=== PATIENT | female | born 1955 | race Caucasian/White ===

== ENCOUNTER 2018-11-27 08:18 | Observation (INO) | payer OTHER ==
[~2018-11-27] VITALS: Ht 165.1 cm; Wt 70.3 kg
--- NOTE | 2018-11-27 08:34 | NUR ---
PATIENT AMBULATED TO ROOM WITH STEADY GAIT AND PHYSICIAN AT BEDSIDE FOR EVAL
[2018-11-27 08:54] LABS: HEMATOCRIT 46.8 % (37.0-47.0); HEMOGLOBIN 15.4 g/dl (12.0-16.0); IMMATURE GRANULOCYTES 0.3 % (0.0-5.0); MEAN CELL VOLUME 94.5 fL CALC (80.0-100.0); MEAN CORPUSCULAR HGB 31.1 pG CALC (26.0-32.0); MEAN CORPUSCULAR HGB CONC 32.9 g/L CALC (32.0-36.0); NEUT# 4.66 thou/uL (2.00-7.15); RED BLOOD COUNT 4.95 mill/uL (4.20-5.60)
[2018-11-27 09:07] LABS: ANION GAP 14 (6-22 (CALC)); BUN 16 mg/dL (8-23); BUN/CREATININE RATIO 17 (12-20 (CALC)); CARBON DIOXIDE 26 mmol/l (22-30); CHLORIDE 106 mmol/l (95-108); CREATININE 0.9 mg/dL (0.5-1.0); GFR > 60 ML/MIN (>=60 (CALC)); GFR FOR AFR.AMER. > 60 ML/MIN (>=60 (CALC)); POTASSIUM 4.1 mmol/l (3.5-5.1); SODIUM 141 mmol/l (137-146)
[2018-11-27 09:09] LABS: PROTHROMBIN TIME 10.5 SECONDS (9.0-12.5)
--- NOTE | 2018-11-27 09:27 | NUR ---
PATIENT RESTING AWAITING RADIOLOGY RESULTS STATES PAIN 4 ON 0-10 SCALE
--- NOTE | 2018-11-27 10:24 | NUR ---
PATIENT RESTING AWAITING ROOM ASSIGNMNET
--- NOTE | 2018-11-27 10:33 | NUR ---
REPORT CALLED TO BAMBI IN MED SURG
--- NOTE | 2018-11-27 10:38 | NUR ---
PATIENT TRANSPORTED TO [facility]
[2018-11-27 10:39] VITALS: BP 126/52
--- NOTE | 2018-11-27 11:11 | NUR ---
PT HAD COME FROM ER VIA WHEELCHAIR BY [facility]. ASSESSMENT DONE. PT IS A&O X3. RIGHT ARM IN PLACE WITH A SLING. RIGHT ARM ELEVATED IN PILLOW. TELE IN PLACE. #22 LAC THAT APPEARS HEALTHY. RESPS EVEN AND UNLABORED. SAFETY PRECAUTIONS REINFORCED AND CALL LIGHT IN REACH.
[2018-11-27] MEDS ORDERED: AMIODARONE200 MG PO (11:43)
[2018-11-27] MEDS ORDERED: LEVOTHYROXIN25 MC1 PO (11:44)
[2018-11-27] MEDS ORDERED: PRILOSEC20 MG/CAP PO (11:45)
[2018-11-27] MEDS ORDERED: ELIQUIS5 MG PO (11:46)
--- NOTE | 2018-11-27 12:10 | NUR ---
MEDICATED PT WITH ULTRAM FOR PAIN IN RIGHT ARM 11/01 SEE EMAR. ICE PACK APPLIED TO RIGHT ARM. CALL LIGHT IN REACH.
--- NOTE | 2018-11-27 15:40 | NUR ---
MEDICATED PT WITH LORTAB FOR PAIN IN RIGHT ARM 12/01 SEE EMAR. RIGHT ARM ELEVATED IN PILLOW. ICE PACK APPLIED. PT DENIES ANY OTHER NEEDS AT THIS TIME. CALL LIGHT IN REACH.
[2018-11-27 17:22] VITALS: BP 119/69
[2018-11-27 19:00] VITALS: BP 126/58
--- NOTE | 2018-11-27 19:35 | NUR ---
REPORT RECEIVED FROM DAY NURSE. PT IS STANDING ON SIDE OF THE BED, HER IS SITTING ON THE BED AND PT IS RUBBING LOTION ONTO HUSBANDS BACK. PT HAS SLING TO RIGHT ARM AND REPORTS FEELING OKAY AT THIS TIME. POC DISCUSSED.
--- NOTE | 2018-11-27 20:15 | NUR ---
PT ASSESSED, LUNG SOUNDS ARE CLEAR, ABD SOFT NON-TENDER, PUPILS ARE EQUAL AND REACTIVE, NEURO'S INTACT, PT LOCX4, FINGERS TO RIGHT HAND ARE WARM, PINK AND ABLE TO MOVE. PT REPORTS NORMAL STOOL YESTEREDAY. SKIN IS INTACT AND PT DENIES ANY OTHER INJURIES FROM FALL. PT ENCOURAGED TO CALL IF ANY NEEDS ARISE. CALL LIGHT AT BEDSIDE.
--- NOTE | 2018-11-27 21:50 | NUR ---
PT MEDICATED FOR PAIN REPORTED 12/01. PT IS TALKATIVE AND TELLING ME HER PLANS FOR THE NEXT DAY AND ASKING ABOUT THE HOSPITAL LAYOUT. PT ASSISTED SETTING UP TABLE FOR THE NIGHT AND REPOSITIONING FOR COMFORT IN BED. AIDE IS IN ASSISTING PT ALSO. PT REPORTS 200CC OF CLEAR YELLOW URINE THAT SHE MEASURED AND EMPTIED HERSELF. NEURO'S APPEAR TO BE INTACT. LOCX4. WILL CONTINUE TO MONITOR. CALL LIGHT AT SIDE AND PT REMINDED OF ITS USE AND ENCOURAGED TO CALL FOR ASSISTANCE.
[2018-11-28 00:07] VITALS: BP 113/64
--- NOTE | 2018-11-28 01:20 | NUR ---
PT SLEEPING, AWOKE TO MY ENTERING ROOM. NEURO'S INTACT, PT LOC. ICE PACK REPOSITIONED AND RIGHT ARM ELEVATED ON PILLOWS. DENIES ANY OTHER NEEDS AT THIS TIME. CALL LIGHT AT SIDE.
[2018-11-28 04:25] VITALS: BP 122/74
--- NOTE | 2018-11-28 04:50 | NUR ---
PT NEURO'S INTACT, PT ASSISTED W/REPOSITIONING, MEDICATED FOR PAIN REPORTED 5/10 IN RIGHT WRIST. ICEPACK REPLACED TO RIGHT WRIST. FINGERS WARM/PINK AND WITH MOVEMENT. POC, LABS AND MEDICATION SCHEDULE DISCUSSED W/PT. DENIES ANY OTHER NEEDS AT THIS TIME. CALL LIGHT IN HAND. PT LEFT W/LIGHTS ON WATCHING TV.
[2018-11-28 05:24] LABS: IMMATURE GRANULOCYTES 0.3 % (0.0-5.0); MEAN CORPUSCULAR HGB 31.5 pG CALC (26.0-32.0); MEAN CORPUSCULAR HGB CONC 32.8 g/L CALC (32.0-36.0); NEUT# 7.08 thou/uL (2.00-7.15); RED BLOOD COUNT 4.25 mill/uL (4.20-5.60); RED CELL DISTRI WIDTH 13.1 % (11.5-15.5)
[2018-11-28 05:34] LABS: HEMATOCRIT 40.8 % (37.0-47.0); HEMOGLOBIN 13.4 g/dl (12.0-16.0)
[2018-11-28 05:41] LABS: ANION GAP 11 (6-22 (CALC)); BUN 13 mg/dL (8-23); BUN/CREATININE RATIO 16 (12-20 (CALC)); CARBON DIOXIDE 27 mmol/l (22-30); CHLORIDE 106 mmol/l (95-108); CREATININE 0.8 mg/dL (0.5-1.0); GFR > 60 ML/MIN (>=60 (CALC)); GFR FOR AFR.AMER. > 60 ML/MIN (>=60 (CALC)); POTASSIUM 4.2 mmol/l (3.5-5.1); SODIUM 140 mmol/l (137-146)
[2018-11-28 07:41] VITALS: BP 109/60
--- NOTE | 2018-11-28 08:33 | NUR ---
ASSESSMENT DONE. TELE IN PLACE. PT IS A&O X3. RESPS EVEN AND UNLABORED MEDICATED PT WITH ULTRAM FOR PAIN IN RIGHT ARM 09/01. RIGHT ARM IN SLING AND ELEVATED IN PILLOW. PT DENIES ANY OTHER NEEDS AT THIS TIME. CALLL LIGHT IN REACH.
[2018-11-28 11:06] VITALS: BP 119/61
--- NOTE | 2018-11-28 11:23 | NUR ---
MEDICATED PT WITH LORTAB FOR PAIN IN RIGHT ARM 09/01 SEE EMAR. RIGHT ARM ELEVATED IN PILLOW AND ICE PACK APPLIED. PT DENIES ANY OTHER NEEDS AT THIS TIME. CALL LIGHT IN REACH.
[2018-11-28] MEDS ORDERED: LORTAB 5/3255 MG PO (12:42)
[2018-11-28] MEDS ORDERED: LEVOTHYROXIN25 MC1 PO (12:42)
--- NOTE | 2018-11-28 13:47 | NUR ---
Discharge instructions given. Patient verbalizes understanding of same. Discharged in stable condition via Wheelchair to Home with spouse. All belongings sent with pt.
== END 2018-11-28 13:47 | disposition home or self-care (01) | DRG 999 ==
LOC: ED 08:18 → ED-I 08:52 → ED 08:52 → ED-I 09:31 → ED 10:16 → MS2 10:17
PROVIDERS: Family Medicine; Nurse Practitioner Family; ADMIT Internal Medicine; ATTEND Internal Medicine
PROC: 2W3CX1Z Immobilization of Right Lower Arm using Splint (ICD-10-PCS; principal; 2018-11-27)
DX: S00.03XA Contusion of scalp, initial encounter (principal); S52.501A Unspecified fracture of the lower end of right radius, initial encounter for closed fracture; S52.611A Displaced fracture of right ulna styloid process, initial encounter for closed fracture; I48.0 Paroxysmal atrial fibrillation; E03.9 Hypothyroidism, unspecified; K29.70 Gastritis, unspecified, without bleeding; T38.1X6A Underdosing of thyroid hormones and substitutes, initial encounter; W18.30XA Fall on same level, unspecified, initial encounter; Y93.H2 Activity, gardening and landscaping; Y92.007 Garden or yard of unspecified non-institutional (private) residence as the place of occurrence of the external cause; Z79.01 Long term (current) use of anticoagulants; Z87.891 Personal history of nicotine dependence; Z91.128 Patient's intentional underdosing of medication regimen for other reason
CPT/HCPCS: G0378